=== PATIENT | male | born 1995 | race Hispanic/Latino ===

== ENCOUNTER 2022-08-24 15:47 | Emergency (ER) | payer OTHER, SELFPAY ==
[2022-08-24] VITALS (11 sets, daily range): BP systolic 100–138; BP diastolic 65–99; PULSE 60–79; RESP 12–21; TEMP 36.4–36.6; O2SAT 98–100
--- NOTE | ~2022-08-24 | XR_ITS ---
XR foot RT min 3V DATE: 08/24/2022 17:48 INDICATION: Nail removal TECHNIQUE: 4 views of right foot COMPARISON: None FINDINGS: No recent fracture or dislocation, periosteal reaction or bone destruction. IMPRESSION: No significant abnormality. No fracture or dislocation or any residual radiopaque foreign body Reviewed, dictated and finalized at location A. STITCH SHOULDER JOINER IMPRESSION: No significant abnormality. No fracture or dislocation or any resid ual radiopaque foreign body
--- NOTE | ~2022-08-24 | XR_ITS ---
EXAMINATION: XR foot RT 2V INDICATION: Right foot pain, initial encounter TECHNIQUE: Two views of the right foot are obtained. COMPARISON: None available FINDINGS: The patient's foot is in a work boot. A nail courses from the superior aspect of the boot, through the foot between the first and second proximal phalanges, and through the plantar soft tissue s and out the sole of the boot. No definite fracture is identified. The nail does appear to course th rough the soft tissues medial to the second proximal phalanx. The joint spaces are normal. IMPRESSION: 1. Nail coursing through a work boot, through the foot between the first and second proximal phalange s, and out the sole of the boot. No definite acute osseous abnormality identified. Reviewed, dictated and finalized at location B. FOUNDER AND DIRECTOR IMPRESSION: 1. Nail coursing through a work boot, through the foot between the first and se cond proximal phalanges, and out the sole of the boot. No definite acute osseou s abnormality identified.
--- NOTE | 2022-08-24 17:13 | ED.SKABFB ---
HPI - Skin/Abscess/Foreign Bdy General Chief complaint: Skin/Abscess/Foreign Body Stated complaint: Nail in foot Time Seen by Provider: 08/24/22 15:57 History of Present Illness HPI narrative: Pt was kneeling and had nail gun looped in pocket, pt pulled nail gun out and it fired a nail into his foot. The nail went through his boot and foot and through the bottom of his boot. Pt unsure of last tetanus. Related Data Allergies Allergy/AdvReac Type Severity Reaction Status Date / Time No Known Allergies Allergy Verified 08/24/22 15:56 Review of Systems Review of Systems: All systems reviewed & are unremarkable except as noted in HPI and below Exam Const: General: healthy appearing and no acute distress Nutritional Appearance: well nourished Orientation/consciousness: patient oriented x3 Limitations: no limitations Eyes: Pupils: Equal, round and reactive pupils present EOM: EOMs intact bilaterally Neck: Neck: normal visual inspection Chest: Chest palpation & inspection: normal inspection of the chest Resp: Effort & Inspection: normal respiratory effort Auscultation: clear to auscultation bilaterally Cardio: Rate: regular rate Rhythm: regular rhythm GI: GI Palp: Yes Soft to palpation Auscultation: normal bowel sounds Skin: General skin exam: normal color Neuro: General: patient oriented x3, moves all extremities, no meningeal signs and no focal motor deficits Cranial nerves: Yes Nystagmus not present Speech: normal speech Other: pt able to wiggle his toes, seems to have good sensation to toes and between toes as best i can dtermine under boot Extrem: General: no pedal edema (nail through top of boot and through foot and through bottom of sole of [place]) Psych: Mental Status: mental status grossly normal Affect: normal affect Attitude: cooperative Course Course Emergency Course: disussed with dr cheung recommended quinolone for pseudomonas coverage and will see in follow up Vital Signs Vital signs: Vital Signs Temperature 97.7 F 08/24/22 15:50 Pulse Rate 70 08/24/22 15:50 Respiratory Rate 17 08/24/22 15:50 Blood Pressure 138/99 H 08/24/22 15:50 Pulse Oximetry 99 08/24/22 15:50 Oxygen Delivery Room Air 08/24/22 15:50 Temperature 97.7 F 08/24/22 17:25 Pulse Rate 78 08/24/22 18:32 Respiratory Rate 21 H 08/24/22 18:32 Blood Pressure 103/65 08/24/22 18:32 Pulse Oximetry 98 08/24/22 18:32 Oxygen Delivery Room Air 08/24/22 17:25 Procedures Foreign Body Removal Foreign Body #1: Foreign Body Removal Date: 08/24/22 Time Out Performed: yes Site: right and foot Description of foreign body: other (nail) Sedation/Analgesia: propofol (100 mg) Technique: manual removal (with pliers) Confirmed by:: radiograph Complications: none Post-procedure exam: awake, alert, normal BP, normal HR and normal O2 sat Neurovascular: normal distal pulse, normal capillary fill, distal light touch sensation intact, distal motor function normal, no signs of compartment syndrome and no change from pre-procedure Foreign Body Removal Narrative: pt sedated with propofol, unable to cut throught boot with trauma sheers, grabbed nail under head with pliers and pulled through boot(betadine placed on nail under sole of boot) and out of foot easily Discharge Plan Discharge Clinical Impression: Foreign body in foot Patient Disposition: Home, Self-Care Condition: Stable Instructions: Antibiotic Form, Puncture Wound (ED) Prescriptions: New levofloxacin 750 mg tablet 750 mg PO DAILY Qty: 10 0RF hydrocodone-acetaminophen 5-325 mg tablet 1 tablet PO Q6H PRN (Reason: pain) Qty: 10 0RF Follow-up/Referrals: PHYSICIAN,CORPORATE ATTORNEY [Primary Care Provider] - Song Cheung MD [Physician] -
[2022-08-24] MEDS: TETANUS,DIPHTHERIA,AC PERTUSSIS ADULT (0.5 ML) BOOSTRIX IM (17:33)
[2022-08-24] MEDS: levoFLOXacin 500 MG/D5W 100 ML 500 MG/100 ML BAG 100 MG IVPB (18:19)
--- NOTE | 2022-08-24 18:33 | PC.NURSE ---
1645: EDP Perez at bedside for Moderate sedation for removal of nail of the R. foot. 1650: 80mg of Propofol administered IV per EDP Perez. 1652: 20mg of Propofol administered IV per EDP Perez. 1653: Nail successfully removed from R. foot. area irrigated with normal saline and wrapped with gauze and Coban.
== END 2022-08-24 19:28 | disposition home or self-care (01) ==
PROVIDERS: Emergency Provider Emergency Medicine
DX: S91.341A Puncture wound with foreign body, right foot, initial encounter (principal); W29.4XXA Contact with nail gun, initial encounter; Z23 Encounter for immunization
CPT/HCPCS: 73620; 73630; 90471; 90715; 96365; 96367; 99283; J0690; J1956; J2704